=== PATIENT | female | born 1990 | race Caucasian/White ===

== ENCOUNTER 2017-01-24 16:55 | Emergency (ER) | payer OTHER ==
[2017-01-24 17:04] VITALS: BP 154/78
--- NOTE | 2017-01-24 17:24 | UC ---
Lower Extremity/Ankle HPI - HPI Summary HPI Summary: Stepping off of curb 3 days ago L foot turned underneath her, continues to have pain with weight bearing near distal 5th MT. No prior sx or fx. - History of Current Complaint Chief Complaint: UCLowerExtremity Stated Complaint: LEFT FOOT INJURY Time Seen by Provider: 01/24/17 17:03 Hx Obtained From: Patient Hx Last Menstrual Period: 01/10/17 ?: No Onset/Duration: Sudden Onset Severity Initially: Moderate Severity Currently: Mild Aggravating Factor(s): Standing, Ambulation Alleviating Factor(s): Rest Able to Bear Weight: Yes - Allergies/Home Medications Allergies/Adverse Reactions: Allergies Allergy/AdvReac Type Severity Reaction Status Date / Time No Known Allergies Allergy Verified 01/24/17 17:04 Home Medications: Home Medications Levonorgestrel (Iud) [Mirena IUD] 20 mcg IU DAILY 01/24/17 [History Confirmed ] PMH/Surg Hx/FS Hx/Imm Hx Previously Healthy: Yes Endocrine History Of: Denies: Diabetes Cardiovascular History Of: Denies: Cardiac Disorders Respiratory History Of: Denies: Asthma - Surgical History Surgical History: Yes Surgery Procedure, Year, and Place: Cholecystectomy, 2007, [facility] - Family History Known Family History: Positive: None - Social History Occupation: Employed Part-time - [employer] Alcohol Use: None Substance Use Type: None Smoking Status (MU): Light Every Day Tobacco Smoker Type: Cigarettes Amount Used/How Often: < 1/4 PPD Length of Time of Smoking/Using Tobacco: On and Off for 9 Years Have You Smoked in the Last Year: Yes Review of Systems Constitutional: Negative Skin: Negative Eyes: Negative ENT: Negative Respiratory: Negative Cardiovascular: Negative Gastrointestinal: Negative Genitourinary: Negative Motor: Negative Neurovascular: Negative Musculoskeletal: Other: - L foot pain Neurological: Negative Psychological: Negative All Other Systems Reviewed And Are Negative: Yes Physical Exam Triage Information Reviewed: Yes Appearance: Well-Appearing, No Pain Distress, Obese Vital Signs: Initial Vital Signs Temp 98.0 F 01/24/17 16:59 Pulse 98 01/24/17 16:59 Resp 16 01/24/17 16:59 BP 154/78 01/24/17 16:59 Pulse Ox 100 01/24/17 16:59 Vital Signs Reviewed: Yes Eye Exam: Normal Eyes: Positive: Conjunctiva Clear ENT Exam: Normal ENT: Positive: Normal ENT inspection, Hearing grossly normal, Pharynx normal, TMs normal Dental Exam: Normal Neck exam: Normal Neck: Positive: Supple, Nontender, No Lymphadenopathy Respiratory Exam: Normal Respiratory: Positive: Chest non-tender, Lungs clear, Normal breath sounds, No respiratory distress, No accessory muscle use Cardiovascular Exam: Normal Cardiovascular: Positive: RRR, No Murmur Musculoskeletal: Positive: Other: - tender L 5th distal MT Neurological Exam: Normal Neurological: Positive: Alert Psychological Exam: Normal Skin Exam: Normal Lower Extremity Course/Dx - Differential Dx/Diagnosis Provider Diagnoses: L foot sprain Discharge - Discharge Plan Condition: Stable Disposition: HOME Prescriptions: Naproxen [Naproxen 500 MG TABS] 500 mg PO BID #10 tab Patient Education Materials: Foot Sprain (ED) Referrals: Melissa Edwards MD [Primary Care Provider] - Additional Instructions: Most sprains will gradually get better as long as you don't re-injure the area. Please see your primary care provider if you do not have clear improvement over the next 1-2 weeks.
--- NOTE | 2017-01-24 17:41 | RAD ---
INDICATION: Left foot injury. TECHNIQUE: 3 views of the left foot were obtained. FINDINGS: There is soft tissue swelling adjacent to the lateral aspect of the fifth metatarsal. The bones are normal alignment. Joint spaces appear maintained. No fracture is seen. IMPRESSION: SOFT TISSUE SWELLING, NO FRACTURE IS SEEN.
== END 2017-01-24 17:52 | disposition home or self-care (01) ==
LOC: UCCORT 16:55
DX: S93.602A Unspecified sprain of left foot, initial encounter (principal); X50.1XXA Overexertion from prolonged static or awkward postures, initial encounter; Y93.89 Activity, other specified; Y92.89 Other specified places as the place of occurrence of the external cause; Z90.49 Acquired absence of other specified parts of digestive tract; E66.9 Obesity, unspecified; F17.210 Nicotine dependence, cigarettes, uncomplicated
CPT/HCPCS: 99213; G0463

== ENCOUNTER 2017-03-26 21:30 | Emergency (ER) | payer OTHER ==
[2017-03-26 22:12] VITALS: BP 151/84
[2017-03-26] MEDS ORDERED: Ketorolac INJ* 60 MG/2 ML VIAL IM ONE (22:31)
[2017-03-26] MEDS ORDERED: Ondansetron ODT TAB* 4 MG PO ONE ×2 (22:32→23:23)
--- NOTE | 2017-03-26 22:32 | UC ---
Headache HPI - HPI Summary HPI Summary: 26 yo female with the onset of headache today Gradual onset with progressive worsening bitemporal and pounding photophobic nausea and vomiting no f/c no head trauma no stiff neck these symptoms are typical of her migraines not her worse AC - History Of Current Complaint Chief Complaint: UCHeadafranklin Stated Complaint: HEADACHE Time Seen by Provider: 03/26/17 22:26 Hx Obtained From: Patient Hx Last Menstrual Period: IUD Onset/Duration: Gradual Onset, Lasting Hours Onset Of Symptoms: Gradual Currently Pain Is: Current Pain Scale(0-10)= - 7 Pain Intensity: 7 Pain Scale Used: 0-10 Numeric Timing: Constant Character: Throbbing Location of Headache: Temporal Aggravating Factor: Nothing Allevating Factors: Nothing Associated Signs And Symptoms: Positive: Nausea, Vomiting Related History: Similar Episode/DX As: - migraine - Allergies/Home Medications Allergies/Adverse Reactions: Allergies Allergy/AdvReac Type Severity Reaction Status Date / Time No Known Allergies Allergy Verified 03/26/17 22:06 PMH/Surg Hx/FS Hx/Imm Hx Previously Healthy: Yes Neurological History: Migraine - Surgical History Surgical History: Yes Surgery Procedure, Year, and Place: Cholecystectomy, 2008, [facility] - Family History Known Family History: Negative: Cardiac Disease, Hypertension, Diabetes - Social History Alcohol Use: None Substance Use Type: None Smoking Status (MU): Light Every Day Tobacco Smoker Type: Cigarettes Amount Used/How Often: < 1/4 PPD Length of Time of Smoking/Using Tobacco: On and Off for 9 Years Have You Smoked in the Last Year: Yes - Immunization History Most Recent Influenza Vaccination: 2016 Most Recent Tetanus Shot: UTD Most Recent Pneumonia Vaccination: N/A Review of Systems Constitutional: Negative Skin: Negative Eyes: Negative ENT: Negative Respiratory: Negative Cardiovascular: Negative Gastrointestinal: Vomiting Genitourinary: Negative Motor: Negative Neurovascular: Negative Musculoskeletal: Negative Neurological: Headache Psychological: Negative All Other Systems Reviewed And Are Negative: Yes Physical Exam Triage Information Reviewed: Yes Appearance: Well-Appearing, No Pain Distress, Well-Nourished Vital Signs: Initial Vital Signs Temp 98.7 F 03/26/17 22:07 Pulse 99 03/26/17 22:07 Resp 18 03/26/17 22:07 BP 151/84 03/26/17 22:07 Pulse Ox 99 03/26/17 22:07 Eye Exam: Normal ENT: Positive: Normal ENT inspection, Hearing grossly normal, Pharynx normal, TMs normal. Negative: Nasal congestion, Nasal drainage, Trismus, Muffled/ hoarse voice Dental: Positive: Other: - left TMJ crepitus Neck: Positive: Supple, Nontender, No Lymphadenopathy Respiratory: Positive: Lungs clear, Normal breath sounds, No respiratory distress, No accessory muscle use Cardiovascular: Positive: RRR, No Murmur Musculoskeletal: Positive: ROM Intact, No Edema Neurological Exam: Normal Neurological: Positive: Alert, Muscle Tone Normal, Other: - GCS 15/15, eomi/ perrl, cn2-12 intact, sensory intact dtrs symetrical Re-Evaluation - Re-Evaluation First Eval Re-Evaluation Time: 23:26 Change: Improved Comment: AC /, no nausea Headache Course/Dx - Differential Dx/Diagnosis Provider Diagnoses: headache. suspect migraine Discharge - Discharge Plan Condition: Stable Disposition: HOME Prescriptions: Naproxen Sodium [Naproxen Sodium 500 MG TAB] 500 mg PO BID PRN #30 tab PRN Reason: Pain Ondansetron TAB* [Zofran Tab*] 4 mg PO Q6H PRN #10 tab PRN Reason: Nausea Patient Education Materials: Acute Headache (ED) Forms: *Work Release Referrals: Melissa Edwards MD [Primary Care Provider] - 1 Day Additional Instructions: zofran if needed for nausea
== END 2017-03-26 23:35 | disposition home or self-care (01) ==
LOC: UCCORT 21:30
DX: R51 Headache (principal); F17.210 Nicotine dependence, cigarettes, uncomplicated
CPT/HCPCS: 96372; 99212; A9270-GY; G0463; J1885

== ENCOUNTER 2017-05-14 11:26 | Emergency (ER) | payer OTHER ==
[2017-05-14 11:39] VITALS: BP 135/84
--- NOTE | 2017-05-14 11:59 | UC ---
Upper Extremity HPI - HPI Summary HPI Summary: right arm pain x 1 hr + injury to right upper arm as she was lifting a heavy object felt a pop on her right bicep + pain, no swelling, no bruising pain with arm flexion , better with rest and not moving the right arm - History of Current Complaint Chief Complaint: UCUpperExtremity Stated Complaint: RIGHT ARM INJURY Time Seen by Provider: 05/14/17 11:43 Hx Obtained From: Patient Hx Last Menstrual Period: 05/04/17 ?: No Onset/Duration: Sudden Onset, Lasting Hours - 1, Still Present Severity Initially: Moderate Severity Currently: Moderate Location Of Pain: Is Discrete @ - right upper arm Character: Aching, Throbbing Aggravating Factor(s): Movement, Lifting, Flexion, Extension Alleviating Factor(s): Rest Associated Signs And Symptoms: Positive: Weakness. Negative: Swelling, Redness , Bruising, Fever, Numbness/Tingling, Other - Allergies/Home Medications Allergies/Adverse Reactions: Allergies Allergy/AdvReac Type Severity Reaction Status Date / Time No Known Allergies Allergy Verified 05/14/17 11:32 PMH/Surg Hx/FS Hx/Imm Hx Previously Healthy: Yes - Surgical History Surgical History: Yes Surgery Procedure, Year, and Place: Cholecystectomy, 2008, [facility] - Family History Known Family History: Positive: None Negative: Cardiac Disease, Hypertension, Diabetes - Social History Alcohol Use: None Substance Use Type: None Smoking Status (MU): Light Every Day Tobacco Smoker Type: Cigarettes Amount Used/How Often: 1/2 PPD Length of Time of Smoking/Using Tobacco: On and Off for 9 Years Have You Smoked in the Last Year: Yes Household Exposure Type: Cigarettes - Immunization History Most Recent Influenza Vaccination: 2016 Most Recent Tetanus Shot: UTD Most Recent Pneumonia Vaccination: N/A Review of Systems Constitutional: Negative Skin: Negative Eyes: Negative ENT: Negative Respiratory: Negative All Other Systems Reviewed And Are Negative: Yes Physical Exam Triage Information Reviewed: Yes Appearance: Pain Distress, Obese Vital Signs: Initial Vital Signs Temp 98.4 F 05/14/17 11:33 Pulse 95 05/14/17 11:33 Resp 20 05/14/17 11:33 BP 135/84 05/14/17 11:33 Pulse Ox 100 05/14/17 11:33 Vital Signs Reviewed: Yes Eyes: Positive: Conjunctiva Clear ENT: Positive: Normal ENT inspection, Hearing grossly normal, Pharynx normal Neck: Positive: Supple, Nontender, No Lymphadenopathy Respiratory: Positive: Chest non-tender, Lungs clear Cardiovascular: Positive: RRR, No Murmur, Pulses Normal, Brisk Capillary Refill Abdominal Exam: Normal Musculoskeletal: Positive: Other: - right arm : + tendernss right bicep , no swelling, no ecchymosis pain with flexeion and extension, limited strength of flexion Neurological: Positive: Alert Skin Exam: Normal Upper Extremity Course/Dx - Differential Dx/Diagnosis Differential Diagnosis/HQI/PQRI: Other - bicep tendon rupture Provider Diagnoses: right arm strain Discharge - Discharge Plan Condition: Stable Disposition: HOME Patient Education Materials: Cervical Strain (ED) Forms: *Work Release Referrals: Fredy Duncan MD [Medical Doctor] - As Soon As Possible Melissa Edwards MD [Primary Care Provider] - Additional Instructions: concern about bicep tendon rupture cont. with rest, ice, Naproxen 2 x per day for pain follow up with ortho
== END 2017-05-14 12:07 | disposition home or self-care (01) ==
LOC: UCCORT 11:26
DX: S46.911A Strain of unspecified muscle, fascia and tendon at shoulder and upper arm level, right arm, initial encounter (principal); X50.0XXA Overexertion from strenuous movement or load, initial encounter; Y93.9 Activity, unspecified; Y92.9 Unspecified place or not applicable; Y99.9 Unspecified external cause status; Z72.0 Tobacco use
CPT/HCPCS: 99212; G0463

== ENCOUNTER 2017-06-13 17:38 | Emergency (ER) | payer OTHER ==
[2017-06-13 18:00] VITALS: BP 132/75
--- NOTE | 2017-06-13 18:27 | UC ---
Hip/Pelvis Pain - HPI Summary HPI Summary: left hip pain x 3 days no radiation of the pain no known injury - History Of Current Complaint Chief Complaint: UCLowerExtremity Stated Complaint: LEFT HIP PAIN Time Seen by Provider: 06/13/17 18:13 Hx Obtained From: Patient Hx Last Menstrual Period: 04/2017 has mirena; did negative PT 06/12/17 ?: No Onset/Duration: Gradual Onset, Lasting Days - 3, Still Present Timing: Constant Severity Initially: Moderate Severity Currently: Moderate Location: Discrete At: - left hip Character Of Pain: Aching Aggravating Factor(s): Movement, Weight Bearing Alleviating Factor(s): Rest Associated Signs And Symptoms: Negative: Swelling, Redness, Bruising, Fever, Weakness, Dizziness, Syncope, Abdominal Pain, Knee Pain - Allergies/Home Medications Allergies/Adverse Reactions: Allergies Allergy/AdvReac Type Severity Reaction Status Date / Time No Known Allergies Allergy Verified 06/13/17 18:00 PMH/Surg Hx/FS Hx/Imm Hx Previously Healthy: Yes - Surgical History Surgical History: Yes Surgery Procedure, Year, and Place: Cholecystectomy, 2008, [facility] - Family History Known Family History: Positive: None Negative: Cardiac Disease, Hypertension, Diabetes - Social History Alcohol Use: None Substance Use Type: None Smoking Status (MU): Light Every Day Tobacco Smoker Type: Cigarettes Amount Used/How Often: 1/2 PPD Length of Time of Smoking/Using Tobacco: On and Off for 9 Years Have You Smoked in the Last Year: Yes Household Exposure Type: Cigarettes - Immunization History Most Recent Influenza Vaccination: 2015 Most Recent Tetanus Shot: UTD Most Recent Pneumonia Vaccination: N/A Review of Systems Constitutional: Negative Skin: Negative Eyes: Negative ENT: Negative Respiratory: Negative Is Patient Immunocompromised?: No All Other Systems Reviewed And Are Negative: Yes Physical Exam Triage Information Reviewed: Yes Appearance: Well-Appearing, No Pain Distress, Obese Vital Signs: Initial Vital Signs Temp 98.4 F 06/13/17 17:55 Pulse 91 06/13/17 17:55 Resp 18 06/13/17 17:55 BP 132/75 06/13/17 17:55 Pulse Ox 99 06/13/17 17:55 Vital Signs Reviewed: Yes Eyes: Positive: Conjunctiva Clear ENT: Positive: Normal ENT inspection, Hearing grossly normal, Pharynx normal Neck: Positive: Supple, Nontender, No Lymphadenopathy Respiratory: Positive: Chest non-tender, Lungs clear, Normal breath sounds Cardiovascular: Positive: RRR, No Murmur, Pulses Normal Musculoskeletal: Positive: Other: - left hip: no swelling, no erythema, + tenderness lateral hip, pain with hip abduction , good ROM , normal strngth Hip Injury Course/Dx - Differential Dx/Diagnosis Provider Diagnoses: bursitis left hip Discharge - Discharge Plan Condition: Stable Disposition: HOME Prescriptions: Naproxen [Naproxen 500 mg] 500 mg PO BID #20 tab Patient Education Materials: Hip Bursitis (ED) Referrals: Melissa Edwards MD [Primary Care Provider] - 2 Weeks
== END 2017-06-13 18:23 | disposition home or self-care (01) ==
LOC: UCCORT 17:38
DX: M70.72 Other bursitis of hip, left hip (principal); Y93.9 Activity, unspecified; E66.9 Obesity, unspecified; Z90.49 Acquired absence of other specified parts of digestive tract; F17.210 Nicotine dependence, cigarettes, uncomplicated
CPT/HCPCS: 99212; G0463

== ENCOUNTER 2017-06-18 08:52 | Emergency (ER) | payer OTHER ==
[2017-06-18 09:09] VITALS: BP 109/72
--- NOTE | 2017-06-18 09:24 | UC ---
Ear Complaint HPI - HPI Summary HPI Summary: 26 year old female with ear complaint. Left greater than right ear and neck pain onset yesterday with swollen neck glands [ End ] - History of Current Complaint Chief Complaint: UCEar Stated Complaint: SORE THROAT,BILATERAL EAR PAIN Time Seen by Provider: 06/18/17 09:17 Hx Obtained From: Patient Hx Last Menstrual Period: 04/2017 ?: No Onset/Duration: Sudden Onset Severity Initially: Moderate - Allergies/Home Medications Allergies/Adverse Reactions: Allergies Allergy/AdvReac Type Severity Reaction Status Date / Time No Known Allergies Allergy Verified 06/18/17 09:10 PMH/Surg Hx/FS Hx/Imm Hx Previously Healthy: Yes - Surgical History Surgical History: Yes Surgery Procedure, Year, and Place: Cholecystectomy, 2008, [facility] - Family History Known Family History: Positive: None Negative: Cardiac Disease, Hypertension, Diabetes - Social History Occupation: Employed Full-time Alcohol Use: None Substance Use Type: None Smoking Status (MU): Light Every Day Tobacco Smoker Type: Cigarettes Amount Used/How Often: 1/2 PPD Length of Time of Smoking/Using Tobacco: On and Off for 9 Years Have You Smoked in the Last Year: Yes Household Exposure Type: Cigarettes Cessation Counseling: Patient Advised to Stop - Immunization History Most Recent Influenza Vaccination: 2016 Most Recent Tetanus Shot: UTD Most Recent Pneumonia Vaccination: N/A Review of Systems Constitutional: Fatigue ENT: Ear Ache Is Patient Immunocompromised?: No All Other Systems Reviewed And Are Negative: Yes Physical Exam Triage Information Reviewed: Yes Appearance: Well-Appearing, No Pain Distress, Well-Nourished Vital Signs: Initial Vital Signs Temp 98.4 F 06/18/17 08:57 Pulse 97 06/18/17 08:57 Resp 20 06/18/17 08:57 BP 109/72 06/18/17 08:57 Vital Signs Reviewed: Yes Eye Exam: Normal ENT: Positive: TM bulging, TM dull - left, TM red Dental Exam: Normal Neck: Positive: Supple, Nontender, Enlarged Nodes @ - left anterior cervical Respiratory Exam: Normal Cardiovascular Exam: Normal Musculoskeletal Exam: Normal Neurological Exam: Normal Psychological Exam: Normal Skin Exam: Normal Ear Complaint Course/Dx - Differential Dx/Diagnosis Differential Diagnosis/HQI/PQRI: Otitis Externa, Otitis Media, Perforated TM, URI Provider Diagnoses: Left AOM Discharge - Discharge Plan Condition: Good Disposition: HOME Prescriptions: Amoxicillin PO (*) [Amoxicillin 875 MG (*)] 875 mg PO BID #20 tab Patient Education Materials: Otitis Media (ED) Forms: *Work Release Referrals: Melissa Edwards MD [Primary Care Provider] - 4 Days
== END 2017-06-18 09:40 | disposition home or self-care (01) ==
LOC: UCCORT 08:52
DX: H66.92 Otitis media, unspecified, left ear (principal)
CPT/HCPCS: 99212; G0463

== ENCOUNTER 2018-02-09 09:02 | Emergency (ER) | payer OTHER ==
[2018-02-09 09:25] VITALS: BP 145/75
--- NOTE | 2018-02-09 09:47 | UC ---
Abdominal Pain Female HPI - HPI Summary HPI Summary: nausea and vomiting x 4 days no abdominal pain , mild diarrhea, no urinary sx, no fever, no chills - History of Current Complaint Chief Complaint: UCGI Stated Complaint: VOMITING NAUSEA FEVER Time Seen by Provider: 02/09/18 09:34 Hx Obtained From: Patient Hx Last Menstrual Period: 01/07/18 ?: No Onset/Duration: Gradual Onset, Lasting Days - 4, Still Present Timing: Constant Severity Initially: Moderate Severity Currently: Moderate Pain Intensity: 0 Location: Diffuse Radiates: No Character: Cramping Aggravating Factor(s): Food Alleviating Factor(s): Nothing Associated Signs and Symptoms: Positive: Decreased Appetite, Nausea, Vomiting, Diarrhea. Negative: Fever, Cough, Back Pain, Constipation, Blood in Stool, Urinary Symptoms, Vaginal Bleeding, Vaginal Discharge Allergies/Adverse Reactions: Allergies Allergy/AdvReac Type Severity Reaction Status Date / Time No Known Allergies Allergy Verified 02/09/18 09:21 PMH/Surg Hx/FS Hx/Imm Hx Neurological History: Migraine - Surgical History Surgical History: Yes Surgery Procedure, Year, and Place: Cholecystectomy, 2008, [facility] - Family History Known Family History: Positive: None Negative: Cardiac Disease, Hypertension, Diabetes - Social History Alcohol Use: None Substance Use Type: None Smoking Status (MU): Heavy Every Day Tobacco Smoker Type: Cigarettes Amount Used/How Often: 1/2 PPD Length of Time of Smoking/Using Tobacco: On and Off for 9 Years Have You Smoked in the Last Year: Yes Household Exposure Type: Cigarettes - Immunization History Most Recent Influenza Vaccination: 2015 Most Recent Tetanus Shot: UTD Most Recent Pneumonia Vaccination: N/A Review of Systems Constitutional: Negative Skin: Negative Eyes: Negative ENT: Negative Respiratory: Negative Cardiovascular: Negative Gastrointestinal: Vomiting, Diarrhea, Nausea Genitourinary: Negative Is Patient Immunocompromised?: No All Other Systems Reviewed And Are Negative: Yes Physical Exam Triage Information Reviewed: Yes Appearance: Well-Appearing, No Pain Distress, Obese Vital Signs: Initial Vital Signs Temp 99.6 F 02/09/18 09:21 Pulse 99 02/09/18 09:21 Resp 20 02/09/18 09:21 BP 145/75 02/09/18 09:21 Pulse Ox 100 02/09/18 09:21 Vital Signs Reviewed: Yes Eyes: Positive: Conjunctiva Clear ENT: Positive: Normal ENT inspection, Hearing grossly normal, Pharynx normal Neck: Positive: Supple, Nontender, No Lymphadenopathy Respiratory: Positive: Chest non-tender, Lungs clear, Normal breath sounds Cardiovascular: Positive: RRR, No Murmur, Pulses Normal Abdomen Description: Positive: Nontender, Soft. Negative: CVA Tenderness (R), CVA Tenderness (L), Distended, Guarding Bowel Sounds: Positive: Present Skin Exam: Normal Abd Pain Female Course/Dx - Differential Dx/Diagnosis Provider Diagnoses: gastritis Discharge - Sign-Out/Discharge Documenting (check all that apply): Discharge/Admit/Transfer - Discharge Plan Condition: Stable Disposition: HOME Patient Education Materials: Gastritis (ED) Forms: *Work Release Referrals: Melissa Edwards MD [Primary Care Provider] - If Needed - Billing Disposition and Condition Condition: STABLE Disposition: HOME
== END 2018-02-09 09:54 | disposition home or self-care (01) ==
LOC: UCCORT 09:02
DX: K29.70 Gastritis, unspecified, without bleeding (principal); G43.909 Migraine, unspecified, not intractable, without status migrainosus; F17.210 Nicotine dependence, cigarettes, uncomplicated; Z90.49 Acquired absence of other specified parts of digestive tract
CPT/HCPCS: 84702; 99211; G0463

== ENCOUNTER 2018-04-21 11:58 | Emergency (ER) | payer OTHER ==
--- NOTE | 2018-04-21 12:19 | UC ---
Back Pain HPI - HPI Summary HPI Summary: Pt with luw back pain x 7 days Pt with h.o similar Took APAP - last dose yesterday - no relief 1000mg No bowel/bladder pain no trauma no aggravating factor No paresthesia No weakness of legs PT's medications reviewed this visit - History of Current Complaint Stated Complaint: LOW BACK PAIN Hx Obtained From: Patient Hx Last Menstrual Period: 01/07/18 - Allergies/Home Medications Allergies/Adverse Reactions: Allergies Allergy/AdvReac Type Severity Reaction Status Date / Time No Known Allergies Allergy Verified 02/09/18 09:21 PMH/Surg Hx/FS Hx/Imm Hx Previously Healthy: Yes - Surgical History Surgical History: Yes Surgery Procedure, Year, and Place: Cholecystectomy, 2008, [facility] - Family History Known Family History: Positive: Other - eczema Negative: Cardiac Disease, Hypertension, Diabetes - Social History Occupation: Employed Full-time Lives: With Family Alcohol Use: None Substance Use Type: None Smoking Status (MU): Heavy Every Day Tobacco Smoker Type: Cigarettes Amount Used/How Often: 1/2 PPD Length of Time of Smoking/Using Tobacco: On and Off for 9 Years Have You Smoked in the Last Year: Yes Household Exposure Type: Cigarettes - Immunization History Most Recent Influenza Vaccination: 2016 Most Recent Tetanus Shot: UTD Most Recent Pneumonia Vaccination: N/A Review of Systems Constitutional: Negative Musculoskeletal: Other: - Lumbar back pain All Other Systems Reviewed And Are Negative: Yes Physical Exam - Summary Physical Exam Summary: Vital Signs Reviewed: Yes A+Ox3, no distress Eyes: Conjunctiva Clear, JOSE. EOM intact and full ENT: Hearing grossly normal TM x 2 clear, mmoist, uvula midline, no exudate, no erythema Neck: Positive: Supple Respiratory: Positive: No respiratory distress, No accessory muscle use + CTA throughout no w/r Cardiovascular: RRR nl s1, s2 no m/r CBT <2 sec abd soft + BS nt/nd no guarding, no distension Musculoskeletal Exam: no spinous process c/t/l/s Full AROM c spine + SLE + flex /ext knee, ankle + mild TTP paraspinal mid lumbar R>L Pt ambulating with normal gait. Pt easily noted to stand from seated positio Neurological: Positive: Alert, + sensation throughout b/l LE 2+ Patellar tendon reflex no clonus b/l Psychological: Positive: Normal Response To Family Skin: Positive: no rash, no ecchymosis Triage Information Reviewed: Yes Back Pain Course/Dx - Course Course Of Treatment: Pt with exacerbation of intermittent lumbar back pain, muscle spasm. No CSM involvement. heat. motrin/apap. flexeril - strict return precaution. return precautions. work note - Differential Dx/Diagnosis Provider Diagnoses: lumbar back pain Discharge - Sign-Out/Discharge Documenting (check all that apply): Patient Departure - Discharge Plan Condition: Stable Disposition: HOME Prescriptions: Cyclobenzaprine TAB* [Flexeril 10 MG TAB*] 10 mg PO BID PRN #10 tab PRN Reason: back spasm Patient Education Materials: Low Back Strain (ED) Forms: *Work Release Referrals: Melissa Edwards MD [Primary Care Provider] - Additional Instructions: - Okay to alternate ibuprofen (Advil, Motrin) 600mg and Tylenol pevery 3hours as needed for pain. Take with food. Do NOT take for more than 4-5 days. -Take flexeril - muscle relaxer as prescribed. This medication causes drowsiness - do not drive, operate [employer] or have primary childcare responsibilities while taking -Apply moist heat to your back for 20 minutes at a time, 4-5 times a day. Once your muscles are warm, slow gentle stretching exercises are important -Contact your doctor today to arrange a follow-up appointment next week. -If you pain is uncontrolled, you have difficulty controlling your bowel, numbness/tingling or weakness of your legs or any other concerns it is recommended you go to an emergency department for further treatment - Billing Disposition and Condition Condition: STABLE Disposition: Home
[2018-04-21 12:33] VITALS: BP 138/85
== END 2018-04-21 13:11 | disposition home or self-care (01) ==
LOC: UCCORT 11:58
DX: M54.5 Low back pain (principal); F17.210 Nicotine dependence, cigarettes, uncomplicated
CPT/HCPCS: 99212; G0463

== ENCOUNTER 2019-05-19 20:46 | Emergency (ER) | payer OTHER ==
[2019-05-19 20:56] VITALS: BP 160/104
--- NOTE | 2019-05-19 21:02 | UC ---
Skin Complaint HPI - HPI Summary HPI Summary: Pt presents with c/o itchy, tender erythematous area on right lower abdomen that began yesterday and has worsened over the last 24 hours. Pt is unsure but thinks she was bit or stung by "something" yesterday. Pt states she felt sudden onset of pain and then onset of tenderness on right lower abdomen. Pt states that area is now more red and more tender than yesterday. She has taken PO benadryl twice and applied ice and cortisone cream with no improvement. - History of Current Complaint Time Seen by Provider: 05/19/19 20:50 Stated Complaint: SKIN CONCERN Hx Obtained From: Patient Hx Last Menstrual Period: 11/11/18 ?: No Onset/Duration: Sudden Onset, Lasting Hours Timing: Constant Onset Severity: Mild Current Severity: Moderate Pain Intensity: 0 Location: Discrete - right lower abdomen Character: Pruritus, Redness, Painful Aggravating Factor(s): Touch Alleviating Factor(s): Nothing Associated Signs & Symptoms: Positive: Tenderness Related History: Insect Bite/Sting - Allergy/Home Medications Allergies/Adverse Reactions: Allergies Allergy/AdvReac Type Severity Reaction Status Date / Time No Known Allergies Allergy Verified 05/19/19 20:56 PMH/Surg Hx/FS Hx/Imm Hx Previously Healthy: Yes - Surgical History Surgical History: Yes Surgery Procedure, Year, and Place: Cholecystectomy, 2008, [facility] - Family History Known Family History: Positive: None, Other - eczema Negative: Cardiac Disease, Hypertension, Diabetes - Social History Occupation: Employed Part-time Lives: With Family Alcohol Use: None Substance Use Type: None Smoking Status (MU): Heavy Every Day Tobacco Smoker Type: Cigarettes Amount Used/How Often: 1/2 PPD Length of Time of Smoking/Using Tobacco: On and Off for 9 Years Have You Smoked in the Last Year: Yes Household Exposure Type: Cigarettes - Immunization History Most Recent Influenza Vaccination: 2016 Most Recent Tetanus Shot: UTD Most Recent Pneumonia Vaccination: N/A Vaccination Up to Date: Yes Review of Systems All Other Systems Reviewed And Are Negative: Yes Constitutional: Positive: Negative Skin: Positive: Rash Eyes: Positive: Negative ENT: Positive: Negative Respiratory: Positive: Negative Cardiovascular: Positive: Negative Gastrointestinal: Positive: Negative Genitourinary: Positive: Negative Motor: Positive: Negative Neurovascular: Positive: Negative Musculoskeletal: Positive: Negative Neurological: Positive: Negative Psychological: Positive: Negative Is Patient Immunocompromised?: No Physical Exam Triage Information Reviewed: Yes Appearance: Well-Appearing, Obese Vital Signs: Initial Vital Signs Temp 98.4 F 05/19/19 20:52 Pulse 99 05/19/19 20:52 Resp 20 05/19/19 20:52 BP 160/104 05/19/19 20:52 Pulse Ox 99 05/19/19 20:52 Vital Signs Reviewed: Yes Eye Exam: Normal ENT Exam: Normal ENT: Positive: Hearing grossly normal Dental Exam: Normal Neck exam: Normal Respiratory Exam: Normal Respiratory: Positive: No respiratory distress Musculoskeletal Exam: Normal Neurological Exam: Normal Psychological Exam: Normal Skin Exam: Other - large confluent urticaria right lower abdomen, erythematous, and warm to touch. Course/Dx - Differential Diagnoses - Skin Complaint Differential Diagnoses: Allergic Reaction, Cellulitis, Urticaria - Diagnoses Provider Diagnosis: Insect bite, Urticaria Discharge ED - Sign-Out/Discharge Documenting (check all that apply): Patient Departure All imaging exams completed and their final reports reviewed: No Studies - Discharge Plan Condition: Stable Disposition: HOME Prescriptions: Cetirizine* [ZyrTEC 10 MG TAB*] 10 mg PO DAILY #7 tab predniSONE [Prednisone 20 MG TAB] 20 mg PO DAILY #4 tablet Patient Education Materials: Antihistamine (By mouth), Diphenhydramine (By mouth), Insect Bite or Sting (ED) Referrals: [facility] [Outside] - If Needed No Primary Care Phys,NOPCP [Primary Care Provider] - - Billing Disposition and Condition Condition: STABLE Disposition: Home - Attestation Statements Provider Attestation: Per institutional requirements, I have reviewed the chart, however, I was not consulted specifically or made aware of this patient by the midlevel provider. I did not personally evaluate, interact with , or disposition this patient.
== END 2019-05-19 21:05 | disposition home or self-care (01) ==
LOC: UCCORT 20:46
DX: S30.861A Insect bite (nonvenomous) of abdominal wall, initial encounter (principal); W57.XXXA Bitten or stung by nonvenomous insect and other nonvenomous arthropods, initial encounter; Y92.9 Unspecified place or not applicable; L50.9 Urticaria, unspecified; F17.210 Nicotine dependence, cigarettes, uncomplicated
CPT/HCPCS: 99212; G0463

== ENCOUNTER 2019-06-19 12:01 | Emergency (ER) | payer OTHER ==
[2019-06-19 12:47] VITALS: BP 145/90
--- NOTE | 2019-06-19 12:49 | UC ---
Respiratory Complaint HPI - HPI Summary HPI Summary: COUGH AND CHEST CONGESTION WITH WHEEZING X1 WEEK. COLD CHILLS. JUST FOUND OUT SHE IS 4 WEEKS . [ End ] - History of Current Complaint Chief Complaint: UCRespiratory Stated Complaint: COUGH,CONGESTION,HEAVY CHEST Time Seen by Provider: 06/19/19 12:42 Hx Obtained From: Patient Hx Last Menstrual Period: 11/11/18 ?: No Onset/Duration: Sudden Onset, Lasting Days Timing: Constant Severity Initially: Mild Severity Currently: Mild Pain Intensity: 0 Character: Cough: Nonproductive Aggravating Factors: Exertion, Deep Breaths, Recumbent Position Associated Signs And Symptoms: Positive: Dyspnea, Wheezing, URI - Risk Factors Pulmonary Embolism Risk Factors: - Allergies/Home Medications Allergies/Adverse Reactions: Allergies Allergy/AdvReac Type Severity Reaction Status Date / Time No Known Allergies Allergy Verified 06/19/19 12:44 PMH/Surg Hx/FS Hx/Imm Hx Previously Healthy: Yes - Surgical History Surgical History: Yes Surgery Procedure, Year, and Place: Cholecystectomy, 2008, [facility] - Family History Known Family History: Positive: None, Other - eczema Negative: Cardiac Disease, Hypertension, Diabetes - Social History Alcohol Use: None Substance Use Type: None Smoking Status (MU): Heavy Every Day Tobacco Smoker Type: Cigarettes Amount Used/How Often: 1/2 PPD Length of Time of Smoking/Using Tobacco: On and Off for 9 Years Have You Smoked in the Last Year: Yes Household Exposure Type: Cigarettes - Immunization History Most Recent Influenza Vaccination: 2015 Most Recent Tetanus Shot: UTD Most Recent Pneumonia Vaccination: N/A Vaccination Up to Date: Yes Review of Systems All Other Systems Reviewed And Are Negative: Yes Respiratory: Positive: Shortness Of Breath, Cough, Other - wheezing Physical Exam Triage Information Reviewed: Yes Appearance: Well-Nourished, Ill-Appearing, Pain Distress Vital Signs: Initial Vital Signs Temp 98.3 F 06/19/19 12:44 Pulse 97 06/19/19 12:44 Resp 24 06/19/19 12:44 BP 145/90 06/19/19 12:44 Pulse Ox 100 06/19/19 12:44 Vital Signs Reviewed: Yes Eye Exam: Normal ENT: Positive: Pharyngeal erythema - with large amount of PND, TM bulging, TM dull - bilateral ears, Tonsillar swelling, Hoarse voice Dental Exam: Normal Respiratory: Positive: Chest non-tender, Respiratory distress - mild with cough , Rhonchi, Wheezing, Inspiration Cardiovascular Exam: Normal Abdominal Exam: Normal Abdomen Description: Positive: Nontender, No Organomegaly, Soft Bowel Sounds: Positive: Present Musculoskeletal Exam: Normal Neurological Exam: Normal Psychological Exam: Normal Skin Exam: Normal Respiratory Course/Dx - Course Course Of Treatment: hx obtained, exam performed ,meds reviewed, - Differential Dx/Diagnosis Differential Diagnosis/HQI/PQRI: Asthma, Bronchitis, Laryngitis Provider Diagnosis: Sinusitis, Bronchitis Discharge ED - Sign-Out/Discharge Documenting (check all that apply): Patient Departure All imaging exams completed and their final reports reviewed: No Studies - Discharge Plan Condition: Stable Disposition: HOME Prescriptions: Albuterol HFA INHALER* [Ventolin HFA Inhaler*] 2 puff INH Q4H PRN #1 mdi PRN Reason: Cough Amoxicillin PO (*) [Amoxicillin 875 MG (*)] 875 mg PO BID #20 tab Forms: *Work Release Referrals: No Primary Care Phys,NOPCP [Primary Care Provider] - Additional Instructions: 1. take tylenol for any pain or fever, do not use any ibuprofen or aleve with 2. Warm fluids and salt water gargles 3. Honey for the throat 4. rest and hydrate 5. FOllow up if not improving - Billing Disposition and Condition Condition: STABLE Disposition: Home - Attestation Statements Provider Attestation: I was available for consult. This patient was seen by the NOELLE. The patient was not presented to , seen by or examined by ga -Avril Ruth MD
[2019-06-19] MEDS ORDERED: Albuterol 2.5 MG/3 ML NEB.SOL* (0.083%) INH ONE (12:53)
== END 2019-06-19 13:30 | disposition home or self-care (01) ==
LOC: UCCORT 12:01
DX: J40 Bronchitis, not specified as acute or chronic (principal); J32.9 Chronic sinusitis, unspecified
CPT/HCPCS: 99212; G0463